=== PATIENT | male | born 1950 | race Caucasian/White ===

== ENCOUNTER 2020-06-24 08:58 | Emergency (ER) | payer MEDICARE ==
[2020-06-24] MEDS ORDERED: Acetaminophen 500 MG TAB ONE (09:36)
[2020-06-24 09:56] LABS: #Lymphocytes 0.8 thou/uL (1.20-3.40); #Monocytes 0.9 thou/uL (0.11-0.59); #Neutrophils 7.1 thou/uL (1.40-6.50); %Basophils 0.5 % (0.0-1.0); %Eosinophils 0.3 % (0.0-10.0); %Lymphocytes 8.9 % (21.0-51.0); %Monocytes 10.2 % (0.0-10.0); %Neutrophils 80.2 % (42.0-75.0); Hemoglobin 10.4 g/dL (14.0-18.0); Mean Corpuscular HGB CONC 33.2 g/dL (32.0-36.0); Mean Corpuscular Hemoglobin 28.8 pg (27.0-31.0); Mean Corpuscular Volume 86.9 fL (78.0-98.0); Mean Platelet Volume 5.6 fL (7.4-10.4); Platelet Count 130 thou/uL (130-400); RBC Distribution Width 13.9 % (11.5-14.5); Red Blood Cell (RBC) Count 3.61 mill/uL (4.70-6.10); White Blood Cell (WBC) Count 8.8 thou/uL (4.8-10.8)
[2020-06-24] MEDS ORDERED: cefTRIAXone\\ROCEPHIN 1 GM VIAL ONE (10:08)
[2020-06-24] MEDS ORDERED: Azithromycin 500 MG VIAL ONE (10:08)
[2020-06-24] MEDS ORDERED: Sodium Chloride 0.9% 250 ML 250 ML ONE (10:09)
[2020-06-24 10:14] LABS: CRP (Inflammatory) 5.58 mg/dL (= or < 0.5)
[2020-06-24 10:16] LABS: ALT (SGPT) 12 U/L (8-55); AST (SGOT) 10 U/L (5-34); Albumin 3.1 g/dL (3.4-4.8); Alkaline Phosphatase 61 U/L (40-110); Anion Gap 15 mmol/L (10-20); BUN (Urea Nitrogen) 15 mg/dL (8.4-25.7); Bilirubin, Total 0.4 mg/dL (0.2-1.2); Calc. Creatinine Clearance 0 mL/min (70-130); Calcium 8.5 mg/dL (7.8-10.44); Carbon Dioxide 25 mmol/L (23-31); Chloride 105 mmol/L (98-107); Estimated GFR-MDRD 88; Globulin 3.1 g/dL (2.4-3.5); Glucose 158 mg/dL (80-115); Potassium 3.7 mmol/L (3.5-5.1); Protein, Total 6.2 g/dL (5.8-8.1); Sodium 141 mmol/L (136-145)
[2020-06-24 10:32] LABS: CKMB 0.4 ng/mL (0-6.6)
--- NOTE | 2020-06-24 11:43 | RAD ---
TWO VIEW CHEST: HISTORY: Cough. FINDINGS: Lungs appear well aerated and clear. No infiltrate identified. Vascular markings normal. Heart and mediastinum unremarkable. Osseous structure unremarkable. IMPRESSION: No acute process identified. POS: OFF
[2020-06-24 21:41] LABS: SARS-CoV-2 MS2 Positive; SARS-CoV-2 N Gene Negative; SARS-CoV-2 S Gene Negative; SARS-CoV-2 by NAA Not Detected (NotDetected); SARS-CoV-2 orf1ab Negative
== END 2020-06-24 12:20 | disposition home or self-care (01) ==
LOC: MADERS 08:58
DX: B34.9 Viral infection, unspecified (principal); Z20.828 Contact with and (suspected) exposure to other viral communicable diseases; M19.90 Unspecified osteoarthritis, unspecified site; I25.10 Atherosclerotic heart disease of native coronary artery without angina pectoris; E11.9 Type 2 diabetes mellitus without complications; N40.0 Benign prostatic hyperplasia without lower urinary tract symptoms; E78.5 Hyperlipidemia, unspecified; E78.00 Pure hypercholesterolemia, unspecified; F17.220 Nicotine dependence, chewing tobacco, uncomplicated; Z79.84 Long term (current) use of oral hypoglycemic drugs; Z79.899 Other long term (current) drug therapy
CPT/HCPCS: 71046; 80053; 82550; 82553; 83605; 84484; 85025; 85379; 86140; 87040; 87804 ×2; 93005; 94760; 96365; 96375; 99284; U0003; 87635; J0456; J0696; J7050

== ENCOUNTER 2022-06-22 19:50 | Emergency (ER) | payer MEDICARE ==
[2022-06-22] MEDS ORDERED: cefTRIAXone\\ROCEPHIN 2 GM VIAL ONE (20:35)
[2022-06-22] MEDS ORDERED: Sodium Chloride 0.9% 100 ML ONE (20:35)
[2022-06-22] MEDS ORDERED: Sodium Chloride 0.9% 2,000 ML ONE (20:35)
[2022-06-22 20:38] LABS: #Eosinphils 0.1 thou/uL (0.0-0.7); #Lymphocytes 0.4 thou/uL (1.20-3.40); #Monocytes 0.4 thou/uL (0.11-0.59); #Neutrophils 5.7 thou/uL (1.40-6.50); %Basophils 0.7 % (0.0-1.0); %Lymphocytes 6.6 % (21.0-51.0); %Monocytes 5.7 % (0.0-10.0); Hemoglobin 12.5 g/dL (14.0-18.0); Mean Corpuscular HGB CONC 32.5 g/dL (32.0-36.0); Mean Corpuscular Hemoglobin 28.4 pg (27.0-31.0); Mean Corpuscular Volume 87.2 fl (78.0-98.0); Platelet Count 135 10x3/uL (130-400); RBC Distribution Width 14.6 % (11.5-14.5); White Blood Cell (WBC) Count 6.6 10x3/uL (4.8-10.8)
[2022-06-22 20:55] LABS: ALT (SGPT) 24 U/L (8-55); AST (SGOT) 19 U/L (5-34); Alkaline Phosphatase 94 U/L (40-110); Anion Gap 15 mmol/L (10-20); BUN (Urea Nitrogen) 34 mg/dL (8.4-25.7); Bilirubin, Total 0.5 mg/dL (0.2-1.2); Calc. Creatinine Clearance 0 mL/min (70-130); Calcium 9.3 mg/dL (7.8-10.44); Carbon Dioxide 21 mmol/L (23-31); Chloride 106 mmol/L (98-107); Estimated GFR 57; Globulin 3.6 g/dL (2.4-3.5); Glucose 176 mg/dL (83-110); Potassium 4.1 mmol/L (3.5-5.1); Protein, Total 7.6 g/dL (5.8-8.1); Sodium 138 mmol/L (136-145)
[2022-06-22 21:44] LABS: SARS-CoV-2 NAA Rapid Test Not Detected (NotDetected)
[2022-06-22] MEDS ORDERED: Metoclopramide HCl 10 MG/2 ML VIAL ONE ×2 (23:02→23:14)
[2022-06-22] MEDS ORDERED: Acetaminophen 500 MG TAB ONE (23:20)
[2022-06-23] MEDS ORDERED: Midazolam HCl 2 mg/2 ml Vial ONE (00:34)
[2022-06-23 01:16] LABS: Bilirubin Negative (Negative); Blood, Urine Trace (Negative); Clarity Clear (Clear); Glucose, Urine (Dipstick) >=1000 mg/dL (Negative); Ketone, Urine Trace mg/dL (Negative); Leukocyte Negative (Negative); Nitrite Negative (Negative); Protein, Urine (Dipstick) 100 mg/dL (Neg-Trace); Specific Gravity, Urine 1.025 (1.005-1.030); Urobilinogen 0.2 mg/dL (Less than 2); pH, Urine 5.5 (5.0-9.0)
[2022-06-23 01:20] LABS: RBC/HPF 0-3 HPF (0-3); Sperm/HPF 1+ HPF (None Seen); Squamous Epithelial 0-3 HPF (0-3); WBC/HPF None Seen HPF (0-3)
== END 2022-06-23 04:43 | disposition short-term general hospital (02) ==
LOC: MADERS 19:50
DX: J10.1 Influenza due to other identified influenza virus with other respiratory manifestations (principal); R41.82 Altered mental status, unspecified; F17.290 Nicotine dependence, other tobacco product, uncomplicated; E11.9 Type 2 diabetes mellitus without complications; I25.10 Atherosclerotic heart disease of native coronary artery without angina pectoris; E78.00 Pure hypercholesterolemia, unspecified; Z20.822 Contact with and (suspected) exposure to COVID-19
CPT/HCPCS: 0240U; 70450; 71045; 80053; 82962; 83605; 85025; 87040; 87086; 36416; 81003; 81015; 96361; 96365; 96367; 96375; J0133; J0696; J2250; J2765; J3490; J7050